=== PATIENT | female | born 1990 ===

== ENCOUNTER 2020-12-26 19:21 | Emergency (ER) | payer SELFPAY ==
[2020-12-27 00:02] LABS: Basophils % (Auto) 0.5 % (0.0-1.8); Eosinophils # (Auto) 0.1 K/mm3 (0.0-0.4); Hematocrit 37.4 % (30.3-42.9); Hemoglobin 12.8 gm/dl (10.1-14.3); Lymphocytes # (Auto) 2.7 K/mm3 (1.2-5.4); Lymphocytes % (Auto) 41.1 % (13.4-35.0); Mean Corpuscular HGB Conc 34 % (30-34); Mean Corpuscular Volume 92 fl (79-97); Monocytes # (Auto) 0.5 K/mm3 (0.0-0.8); Monocytes % (Auto) 7.2 % (0.0-7.3); Platelet Count 257 K/mm3 (140-440); Red Blood Count 4.08 M/mm3 (3.65-5.03); Red Cell Distribution Width 13.2 % (13.2-15.2)
[2020-12-27 00:14] LABS: Bacteria,Urine 1+ /HPF (Negative); Bilirubin,Urine NEG (Negative); Blood,Urine NEG (Negative); Color,Urine Yellow (Yellow); Mucus,Urine 3+ /HPF; Protein,Urine <15 mg/dL mg/dL (Negative); Urobilinogen,Urine < 2.0 mg/dL (<2.0)
--- NOTE | 2020-12-27 02:05 | Emergency Department Report ---
ED HPI - General Chief complaint: Vaginal Bleeding Stated complaint: 7WKS PREG/PAINFUL LIGHT BLEEDING Time Seen by Provider: 12/27/20 01:51 Source: patient, family Mode of arrival: Ambulatory Limitations: No Limitations - History of Present Illness Initial comments: 29-year-old female presents to the emergency room stating that she is and is having abdominal pain and vaginal bleeding that started today. Patient reports she is 3 para 1 with 1 miscarriage 7 years ago. Patient states she has mild pelvic pain that started about 2 PM yesterday evening. She states that she is having light pink spotting. She reports that she has had an ultrasound done on December 18, 2020. She is followed by [facility] in [place]. She is has no past medical history currently takes no medications except her vitamins folic acid and iron. Her is here translating. She has no known drug allergies MD Complaint: vaginal bleeding -: This afternoon Time: 14:00 Radiation: suprapubic Severity: mild Severity scale (0 -10): 2 Quality: cramping Consistency: intermittent Improves with: none Worsens with: none Associated symptoms: vaginal bleeding Vaginal bleeding: light :: Yes Number of weeks : 5 OB History - Current : no complications OB History - Previous Pregnancies: miscarriage Last menstrual period: 10/27/20 Pre-girma care: followed by OB - Related Data : 3 Para: 1 Ab: 1 Allergies Allergy/AdvReac Type Severity Reaction Status Date / Time No Known Allergies Allergy Unverified 12/26/20 22:51 ED Review of Systems ROS: Stated complaint: 7WKS PREG/PAINFUL LIGHT BLEEDING Other details as noted in HPI Comment: All other systems reviewed and negative ED Past Medical Hx - Past Medical History Previous Medical History?: No - Surgical History Past Surgical History?: No - Social History Smoking Status: Never Smoker Substance Use Type: None ED Physical Exam - General Limitations: No Limitations General appearance: alert, in no apparent distress - Head Head exam: Present: atraumatic, normocephalic - Eye Eye exam: Present: normal appearance - ENT ENT exam: Present: mucous membranes moist - Neck Neck exam: Present: normal inspection - Respiratory Respiratory exam: Present: normal lung sounds bilaterally. Absent: respiratory distress - Cardiovascular Cardiovascular Exam: Present: regular rate, normal rhythm. Absent: systolic murmur, diastolic murmur, rubs, gallop - GI/Abdominal GI/Abdominal exam: Present: soft, normal bowel sounds. Absent: distended, tenderness, guarding, rebound - Extremities Exam Extremities exam: Present: normal inspection - Back Exam Back exam: Present: normal inspection - Neurological Exam Neurological exam: Present: alert, oriented X3, normal gait - Psychiatric Psychiatric exam: Present: normal affect, normal mood - Skin Skin exam: Present: warm, dry, intact, normal color. Absent: rash ED Course Vital Signs 12/26/20 22:49 Temperature 98.5 F Pulse Rate 65 Respiratory 12 Rate Blood Pressure 121/75 O2 Sat by Pulse 100 Oximetry - Reevaluation(s) Reevaluation #1: 12/27/20 01:55 Called lab there is system is updating not able to give me a ETA on hCG serum ED Medical Decision Making - Lab Data Result diagrams: 12/26/20 23:04 Laboratory Tests 12/26/20 12/26/20 12/26/20 23:04 23:04 23:04 WBC 6.5 RBC 4.08 Hgb 12.8 Hct 37.4 MCV 92 MCH 32 MCHC 34 RDW 13.2 Plt Count 257 Lymph % (Auto) 41.1 H [place] % (Auto) 7.2 Eos % (Auto) 2.0 Baso % (Auto) 0.5 Lymph # (Auto) 2.7 [place] # (Auto) 0.5 Eos # (Auto) 0.1 Baso # (Auto) 0.0 Seg Neutrophils % 49.2 Seg Neutrophils # 3.2 HCG, Quant [id number] H Urine Color Urine Turbidity Urine pH Ur Specific [place] Urine Protein Urine Glucose (UA) Urine Ketones Urine Blood Urine Nitrite Urine Bilirubin Urine Urobilinogen Ur Leukocyte Esterase Urine WBC (Auto) Urine RBC (Auto) U Epithel Cells (Auto) Urine Bacteria (Auto) Urine Mucus Blood Type O POSITIVE 12/26/20 23:37 WBC RBC Hgb Hct MCV MCH MCHC RDW Plt Count Lymph % (Auto) [place] % (Auto) Eos % (Auto) Baso % (Auto) Lymph # (Auto) [place] # (Auto) Eos # (Auto) Baso # (Auto) Seg Neutrophils % Seg Neutrophils # HCG, Quant Urine Color Yellow Urine Turbidity Clear Urine pH 6.0 Ur Specific [place] 1.017 Urine Protein <15 mg/dl Urine Glucose (UA) Neg Urine Ketones 80 Urine Blood Neg Urine Nitrite Neg Urine Bilirubin Neg Urine Urobilinogen < 2.0 Ur Leukocyte Esterase Neg Urine WBC (Auto) 1.0 Urine RBC (Auto) 6.0 U Epithel Cells (Auto) 3.0 Urine Bacteria (Auto) 1+ Urine Mucus 3+ Blood Type - Radiology Data Radiology results: report reviewed Other Patient ID My Comment(s) Study Comments [facility] [address] [place] [address] Ultrasound Report Signed Patient: CARTER YUEN MR#: [id number] : 1990 Acct:[id number] Age/Sex: 29 / F ADM Date: 12/26/20 Loc: ED Attending Dr: Ordering Physician: MANPREET VOGEL Date of Service: 12/27/20 Procedure(s): US OB <= 14 weeks fetus Accession Number(s): [id number] cc: MANPREET VOGEL Pelvic Ultrasound HISTORY: with vaginal spotting. TECHNIQUE: Grayscale and color imaging performed. COMPARISON: None FINDINGS: Uterus measures 9.9 x 6.6 x 7.6 cm. There is an intrauterine gestation with crown-rump length of 11 mm corresponding with an EGA of 7 weeks 1 day. Gestational sac diameter is 3.9 cm which corresponds with an EGA of 9 weeks and 2 days. Overall, the average is 8 weeks and 2 days by ultrasound with an estimated delivery date of 08/07/2019 to. These findings are congruent with the clinical age of 8 weeks and 5 days. There is a small hypoechoic structure adjacent to the gestational sac likely representing a subchorionic hemorrhage. Maximal size of this finding is 1.5 x 0.8 x 1.0 cm. heart rate is 155 bpm. Both ovaries are normal. IMPRESSION: Single viable intrauterine gestation as above with small subch orionic hemorrhage. Signer Name: Ramiro Arce MD Signed: 12/27/2020 3:29 AM Workstation Name: [id number] Transcribed By: ARABELLA Dictated By: Ramiro Arce MD Electronically Authenticated By: Ramiro Arce MD Signed Date/Time: 12/27/20328 DD/ 6 TD/TT: - Medical Decision Making 29-year-old female presents to the emergency room stating that she is and is having abdominal pain and vaginal bleeding that started today. Patient reports she is 3 para 1 with 1 miscarriage 7 years ago. Patient states she has mild pelvic pain that started about 2 PM yesterday evening. She states that she is having light pink spotting. She reports that she has had an ultrasound done on December 18, 2020. She is followed by [facility] in [place]. She is has no past medical history currently takes no medications except her vitamins folic acid and iron. Her is here translating. She has no known drug allergies Critical care attestation.: If time is entered above; I have spent that time in minutes in the direct care of this critically ill patient, excluding procedure time. ED Disposition Clinical Impression: Subchorionic hemorrhage in first trimester, 8 weeks gestation of Disposition: DC-01 TO HOME OR SELFCARE Is pt being admited?: No Does the pt Need Aspirin: No Condition: Stable Instructions: Vaginal Bleeding During , First Trimester, [id number] Additional Instructions: Ultrasound shows you are 8 weeks and 5 days. Shows a small hemorrhage. I recommend pelvic rest and to follow-up with your [facility] in the next 3 to 5 days. Tylenol only for pain. El ultrasonido muestra que tiene 8 semanas y 5 whaley. Muestra jake pequea hemorragia. Recomiendo el descanso plvico y el seguimiento con oconnor obstetra / gineclogo en los prximos 3 a 5 whaley. Tylenol slo para el dolor. Referrals: PRIMARY CAREMD [Primary Care Provider] - 3-5 Days [facility] [Provider Group] - 3-5 Days Your, [facility] [Other] - 3-5 Days Forms: Work/School Release Form(ED) Print Language: UZBEK
--- NOTE | 2020-12-27 03:33 | Ultrasound Report ---
Pelvic Ultrasound HISTORY: with vaginal spotting. TECHNIQUE: Grayscale and color imaging performed. COMPARISON: None FINDINGS: Uterus measures 9.9 x 6.6 x 7.6 cm. There is an intrauterine gestation with crown-rump jason th of 11 mm corresponding with an EGA of 7 weeks 1 day. Gestational sac diameter is 3.9 cm which vida esponds with an EGA of 9 weeks and 2 days. Overall, the average is 8 weeks and 2 days by ultrasound w ith an estimated delivery date of 08/07/2019 to. These findings are congruent with the clinical age of 8 weeks and 5 days. There is a small hypoechoic structure adjacent to the gestational sac likely representing a subchorio edna hemorrhage. Maximal size of this finding is 1.5 x 0.8 x 1.0 cm. heart rate is 155 bpm. Both ovaries are normal. IMPRESSION: Single viable intrauterine gestation as above with small subchorionic hemorrhage. Signer Name: Ramiro Arce MD Signed: 12/27/2020 3:29 AM Workstation Name: [id number]
[2020-12-27 04:38] VITALS: BP 103/72
== END 2020-12-27 04:25 | disposition home or self-care (01) ==
LOC: ED 19:21
DX: O41.8X10 Other specified disorders of amniotic fluid and membranes, first trimester, not applicable or unspecified (principal); Z3A.08 8 weeks gestation of pregnancy
CPT/HCPCS: 36415; 76801; 76817; 81001; 84702; 85025; 86900; 86901